=== PATIENT | female | born 1965 | race African-American/Black ===

== ENCOUNTER 2022-02-03 18:09 | Inpatient (IN) | payer MEDICAID ==
[~2022-02-03] VITALS: Ht 165.1 cm; Wt 80.3 kg
[2022-02-03 21:16] LABS: BASOPHILS % 0.6 % (0.0-2.0); EOSINOPHILS % 0.5 % (0.0-5.0); HEMOGLOBIN. 12.9 g/dL (12.0-16.0); LYMPHOCYTES % 36.7 % (20.0-50.0); MEAN CORPUSCULAR HEMOGLOBIN 29.9 pg (28.0-32.0); MEAN CORPUSCULAR VOLUME 87.8 fL (81.0-99.0); MEAN PLATELET VOLUME 7.9 fl (7.4-10.4); MONOCYTES % 6.6 % (2.0-8.0); NEUTROPHILS % 55.6 % (40.0-76.0); PLATELET 221 x1000/uL (130-400); RED BLOOD CELL COUNT 4.32 mill/uL (4.2-5.4); RED CELL DISTRIBUTION WIDTH 13.5 % (11.6-14.6)
[2022-02-03 21:25] LABS: CHLORIDE 103 mEq/L (98-107); INR 1.1; PARTIAL THROMBOPLASTIN TIME 22.9 sec (23.4-31.0); PROTHROMBIN TIME 11.4 sec (9.6-11.0)
[2022-02-03] MEDS ORDERED: HYDRALAZINE 20MG/ML VIAL IV ONE (21:30)
[2022-02-03] MEDS ORDERED: SODIUM CHLORIDE 0.9% 1,000 ML IV ONE (22:15)
[2022-02-03] MEDS ORDERED: POTASSIUM CHLORIDE 20MEQ/PACKET PO NR (22:15)
[2022-02-04 01:54] LABS: CLARITY URINE CLOUDY (CLEAR); COLOR URINE DARK YELLOW (YELLOW); KETONES URINE 1+ (NEGATIVE); LEUKOCYTE ESTERASE URINE NEGATIVE (NEGATIVE); NITRITE URINE NEGATIVE (NEGATIVE); OCCULT BLOOD URINE NEGATIVE (NEGATIVE); PROTEIN URINE 2+ (NEGATIVE); SPECIFIC GRAVITY URINE 1.026 (1.005-1.030)
[2022-02-04] MEDS ORDERED: POTASSIUM CHLORIDE 20MEQ TABLET SR PO NR (12:30)
[2022-02-04] MEDS ORDERED: ONDANSETRON HCL 4MG/2ML INJ IV PRN (12:30)
[2022-02-04] MEDS ORDERED: AMLODIPINE 10MG TABLET PO SCH (12:30)
[2022-02-04] MEDS ORDERED: HYDRALAZINE HCL 100MG TABLET PO NR (12:30)
[2022-02-04] MEDS: SODIUM CHLORIDE 0.9% 1,000 ML IV SCH (13:00)
[2022-02-04] MEDS: HYDRALAZINE HCL 100MG TABLET PO SCH ×2 (14:34→22:00)
[2022-02-04 16:01] VITALS: BP 116/70
[2022-02-04 16:02] VITALS: BP 116/70
[2022-02-04] MEDS: ACETAMINOPHEN 325MG TABLET PO PRN (17:59)
[2022-02-04] MEDS ORDERED: METF-416 PO (18:22)
[2022-02-04] MEDS ORDERED: INSLIS SUBCUT (18:23)
[2022-02-04] MEDS ORDERED: DEXTROSE 50% WATER 50ML SYRINGE IV PRN (19:00)
[2022-02-04 20:00] VITALS: BP 153/72
[2022-02-04] MEDS ORDERED: POTASSIUM CHLORIDE INJ 40 MEQ in DEXT 5% WATER 250 ML IV ONE (20:45)
[2022-02-04] MEDS: BLOOD SUGAR DIAGNOSTIC STRIP TEST SCH (21:33)
[2022-02-04] MEDS: INSULIN LISPRO 100 UNITS/ML SUBCUT SCH (21:37)
[2022-02-04] MEDS: KCL 20MEQ/100ML PREMIX 100 ML IV SCH (21:45)
[2022-02-05] VITALS: BP 136/82
[2022-02-05] MEDS: KCL 20MEQ/100ML PREMIX 100 ML IV SCH ×2 (00:44→03:15)
[2022-02-05] MEDS: SODIUM CHLORIDE 0.9% 1,000 ML IV SCH ×2 (03:16→14:02)
[2022-02-05 04:00] VITALS: BP 144/81
[2022-02-05] MEDS: HYDRALAZINE HCL 50MG TABLET PO SCH ×3 (05:30→21:47)
[2022-02-05] MEDS: BLOOD SUGAR DIAGNOSTIC STRIP TEST SCH ×4 (06:06→21:16)
[2022-02-05 06:32] LABS: BASOPHILS % 0.3 % (0.0-2.0); EOSINOPHILS % 1.3 % (0.0-5.0); HEMATOCRIT. 38.2 % (36.0-48.0); HEMOGLOBIN. 12.9 g/dL (12.0-16.0); LYMPHOCYTES % 23.5 % (20.0-50.0); MEAN CORPUSCULAR HEMOGLOBIN 29.8 pg (28.0-32.0); MEAN CORPUSCULAR VOLUME 88.1 fL (81.0-99.0); MEAN PLATELET VOLUME 8.4 fl (7.4-10.4); NEUTROPHILS % 67.9 % (40.0-76.0); PLATELET 230 x1000/uL (130-400); RED BLOOD CELL COUNT 4.34 mill/uL (4.2-5.4); RED CELL DISTRIBUTION WIDTH 13.5 % (11.6-14.6)
[2022-02-05 08:30] VITALS: BP 128/77
[2022-02-05] MEDS: INSULIN LISPRO 100 UNITS/ML SUBCUT SCH ×4 (09:09→21:47)
[2022-02-05] MEDS: AMLODIPINE 5MG TABLET PO SCH (09:11)
[2022-02-05] MEDS ORDERED: POTASSIUM CHLORIDE 20MEQ TABLET SR PO NR (10:00)
[2022-02-05 12:30] VITALS: BP 148/80
[2022-02-05 16:00] VITALS: BP 142/79
[2022-02-05 20:00] VITALS: BP 132/75
[2022-02-05] MEDS: RISPERIDONE 0.25MG TABLET PO SCH (21:47)
[2022-02-05] MEDS: CARVEDILOL 3.125 MG TABLET PO SCH (21:47)
[2022-02-06] VITALS: BP 139/88
[2022-02-06] MEDS: SODIUM CHLORIDE 0.9% 1,000 ML IV SCH ×2 (04:13→17:08)
[2022-02-06 04:20] VITALS: BP 137/78
[2022-02-06] MEDS: BLOOD SUGAR DIAGNOSTIC STRIP TEST SCH ×4 (06:27→21:00)
[2022-02-06] MEDS: HYDRALAZINE HCL 50MG TABLET PO SCH ×3 (06:28→22:05)
[2022-02-06] MEDS: INSULIN LISPRO 100 UNITS/ML SUBCUT SCH ×4 (07:50→22:09)
[2022-02-06 08:09] LABS: HIV SCREEN 4G Non Reactive (Non Reactive)
[2022-02-06 08:30] VITALS: BP 151/89
[2022-02-06] MEDS: RISPERIDONE 0.25MG TABLET PO SCH ×2 (08:50→22:05)
[2022-02-06] MEDS: CARVEDILOL 3.125 MG TABLET PO SCH ×2 (08:50→22:05)
[2022-02-06] MEDS: AMLODIPINE 5MG TABLET PO SCH (08:51)
[2022-02-06 12:08] VITALS: BP 154/95
[2022-02-06] MEDS: ACETAMINOPHEN 325MG TABLET PO PRN (12:11)
[2022-02-06] MEDS ORDERED: ESCI20TA37 MT (14:35)
[2022-02-06] MEDS ORDERED: OLAN15TA MT (14:40)
[2022-02-06] MEDS ORDERED: TRAZ-251 MT (14:40)
[2022-02-06] MEDS ORDERED: METO-539 MT (14:40)
[2022-02-06] MEDS ORDERED: LOSA100T32 MT (14:40)
[2022-02-06 15:52] VITALS: BP 128/57
[2022-02-06 20:00] VITALS: BP 161/84
[2022-02-06] MEDS ORDERED: TRAZODONE HCL 50MG TABLET PO PRN (21:00)
[2022-02-06 21:55] LABS: *AMPHETAMINES SCREEN URINE NEGATIVE (NEGATIVE); *BARBITURATES SCREEN URINE NEGATIVE (NEGATIVE); *BENZODIAZEPINES SCREEN URINE NEGATIVE (NEGATIVE); *COCAINE SCREEN URINE NEGATIVE (NEGATIVE); CANNABINOID URINE SCREEN NEGATIVE (NEGATIVE); METHADONE URINE SCREEN NEGATIVE (NEGATIVE); OPIATES URINE SCREEN NEGATIVE (NEGATIVE); PHENCYCLIDINE URINE SCREEN NEGATIVE (NEGATIVE)
[2022-02-06 21:56] LABS: BASOPHILS % 0.3 % (0.0-2.0); EOSINOPHILS % 3.2 % (0.0-5.0); HEMATOCRIT. 33.1 % (36.0-48.0); HEMOGLOBIN. 10.9 g/dL (12.0-16.0); MEAN CORPUSCULAR HEMOGLOBIN 29.5 pg (28.0-32.0); MEAN CORPUSCULAR VOLUME 89.1 fL (81.0-99.0); MEAN PLATELET VOLUME 8.5 fl (7.4-10.4); MONOCYTES % 7.4 % (2.0-8.0); NEUTROPHILS % 48.1 % (40.0-76.0); PLATELET 189 x1000/uL (130-400); RED BLOOD CELL COUNT 3.72 mill/uL (4.2-5.4); RED CELL DISTRIBUTION WIDTH 13.5 % (11.6-14.6)
[2022-02-07] VITALS (7 sets, daily range): BP systolic 124–161; BP diastolic 68–92
[2022-02-07] MEDS ORDERED: POTASSIUM CHLORIDE 20MEQ TABLET SR PO NR (02:45)
[2022-02-07] MEDS: HYDRALAZINE HCL 50MG TABLET PO SCH ×3 (06:22→21:03)
[2022-02-07] MEDS: BLOOD SUGAR DIAGNOSTIC STRIP TEST SCH ×4 (06:29→20:01)
[2022-02-07 07:21] LABS: BASOPHILS % 0.4 % (0.0-2.0); EOSINOPHILS % 3.2 % (0.0-5.0); HEMATOCRIT. 33.1 % (36.0-48.0); HEMOGLOBIN. 11.4 g/dL (12.0-16.0); LYMPHOCYTES % 29.2 % (20.0-50.0); MEAN CORPUSCULAR HEMOGLOBIN 30.4 pg (28.0-32.0); MEAN CORPUSCULAR VOLUME 88.7 fL (81.0-99.0); MEAN PLATELET VOLUME 8.5 fl (7.4-10.4); MONOCYTES % 8.3 % (2.0-8.0); NEUTROPHILS % 58.9 % (40.0-76.0); PLATELET 200 x1000/uL (130-400); RED BLOOD CELL COUNT 3.73 mill/uL (4.2-5.4); RED CELL DISTRIBUTION WIDTH 13.6 % (11.6-14.6)
[2022-02-07] MEDS: INSULIN LISPRO 100 UNITS/ML SUBCUT SCH ×4 (08:37→20:29)
[2022-02-07] MEDS: RISPERIDONE 0.25MG TABLET PO SCH ×2 (08:37→20:28)
[2022-02-07] MEDS: CARVEDILOL 3.125 MG TABLET PO SCH ×2 (08:38→20:28)
[2022-02-07] MEDS: SERTRALINE HCL 50MG TABLET PO SCH (08:38)
[2022-02-07] MEDS: AMLODIPINE 5MG TABLET PO SCH (08:38)
[2022-02-07] MEDS: TRAZODONE HCL 50MG TABLET PO SCH (20:28)
[2022-02-08] VITALS: BP 160/89
[2022-02-08] MEDS ORDERED: LORAZEPAM 2MG/ML CPJ IV PRN (02:45)
[2022-02-08 04:00] VITALS: BP 150/79
[2022-02-08] MEDS: HYDRALAZINE HCL 50MG TABLET PO SCH ×3 (05:52→21:53)
[2022-02-08] MEDS: BLOOD SUGAR DIAGNOSTIC STRIP TEST SCH ×3 (07:20→21:26)
[2022-02-08 08:00] VITALS: BP_SYST 113; BP_SYST 161; BP_DIAS 84; BP_DIAS 89
[2022-02-08] MEDS: SERTRALINE HCL 50MG TABLET PO SCH (08:34)
[2022-02-08] MEDS: AMLODIPINE 5MG TABLET PO SCH (08:35)
[2022-02-08] MEDS: CARVEDILOL 3.125 MG TABLET PO SCH ×2 (08:37→21:54)
[2022-02-08] MEDS: RISPERIDONE 0.25MG TABLET PO SCH ×2 (08:39→21:54)
[2022-02-08] MEDS: INSULIN LISPRO 100 UNITS/ML SUBCUT SCH ×4 (08:43→21:55)
[2022-02-08 12:00] VITALS: BP 152/97
[2022-02-08 15:48] VITALS: BP 128/79
[2022-02-08 20:00] VITALS: BP 135/79
[2022-02-08] MEDS: TRAZODONE HCL 50MG TABLET PO SCH (21:53)
[2022-02-09] VITALS: BP 126/82
[2022-02-09 04:00] VITALS: BP 146/87
[2022-02-09] MEDS: HYDRALAZINE HCL 50MG TABLET PO SCH ×3 (06:41→21:50)
[2022-02-09] MEDS: BLOOD SUGAR DIAGNOSTIC STRIP TEST SCH ×4 (06:41→21:49)
[2022-02-09 08:00] VITALS: BP 156/72
[2022-02-09] MEDS: INSULIN LISPRO 100 UNITS/ML SUBCUT SCH ×4 (08:47→21:00)
[2022-02-09] MEDS: AMLODIPINE 5MG TABLET PO SCH (08:52)
[2022-02-09] MEDS: ACETAMINOPHEN 325MG TABLET PO PRN ×2 (08:52→17:51)
[2022-02-09] MEDS: CARVEDILOL 3.125 MG TABLET PO SCH ×2 (08:53→21:50)
[2022-02-09] MEDS: RISPERIDONE 0.25MG TABLET PO SCH ×2 (09:00→21:50)
[2022-02-09] MEDS: SERTRALINE HCL 50MG TABLET PO SCH (09:00)
[2022-02-09 12:00] VITALS: BP 147/82
[2022-02-09 16:00] VITALS: BP 150/88
[2022-02-09 20:00] VITALS: BP 135/74
[2022-02-09] MEDS: TRAZODONE HCL 50MG TABLET PO SCH (21:00)
[2022-02-10] VITALS: BP 146/75
[2022-02-10 04:00] VITALS: BP 151/72
[2022-02-10] MEDS: BLOOD SUGAR DIAGNOSTIC STRIP TEST SCH ×4 (06:19→21:02)
[2022-02-10] MEDS: HYDRALAZINE HCL 50MG TABLET PO SCH ×3 (06:19→21:11)
[2022-02-10] MEDS: INSULIN LISPRO 100 UNITS/ML SUBCUT SCH ×3 (07:44→21:15)
[2022-02-10 08:00] VITALS: BP 159/76
[2022-02-10] MEDS: CARVEDILOL 3.125 MG TABLET PO SCH ×2 (09:45→21:10)
[2022-02-10] MEDS: SERTRALINE HCL 50MG TABLET PO SCH (09:45)
[2022-02-10] MEDS: RISPERIDONE 0.25MG TABLET PO SCH ×2 (09:46→21:10)
[2022-02-10] MEDS: AMLODIPINE 5MG TABLET PO SCH (09:46)
[2022-02-10 12:00] VITALS: BP 144/78
[2022-02-10 16:00] VITALS: BP 152/80
[2022-02-10 20:00] VITALS: BP 159/94
[2022-02-10] MEDS: TRAZODONE HCL 50MG TABLET PO SCH (21:00)
[2022-02-10] MEDS: ZOLPIDEM TARTRATE 5MG TABLET PO PRN (21:10)
[2022-02-11] VITALS: BP 151/72
[2022-02-11 04:00] VITALS: BP 153/76
[2022-02-11] MEDS: HYDRALAZINE HCL 50MG TABLET PO SCH ×3 (06:07→21:42)
[2022-02-11 08:00] VITALS: BP 152/85
[2022-02-11] MEDS: BLOOD SUGAR DIAGNOSTIC STRIP TEST SCH ×4 (08:06→21:35)
[2022-02-11] MEDS: AMLODIPINE 5MG TABLET PO SCH (08:49)
[2022-02-11] MEDS: RISPERIDONE 0.25MG TABLET PO SCH ×2 (08:49→21:42)
[2022-02-11] MEDS: CARVEDILOL 3.125 MG TABLET PO SCH ×2 (08:50→21:42)
[2022-02-11] MEDS: INSULIN LISPRO 100 UNITS/ML SUBCUT SCH ×4 (08:50→21:45)
[2022-02-11] MEDS: SERTRALINE HCL 50MG TABLET PO SCH (08:50)
[2022-02-11] MEDS: ACETAMINOPHEN 325MG TABLET PO PRN (11:21)
[2022-02-11 12:00] VITALS: BP 165/82
[2022-02-11 16:00] VITALS: BP 149/74
[2022-02-11 20:00] VITALS: BP 151/76
[2022-02-11] MEDS: TRAZODONE HCL 50MG TABLET PO SCH (21:00)
[2022-02-12] VITALS: BP 144/71
[2022-02-12] MEDS: ZOLPIDEM TARTRATE 5MG TABLET PO PRN (02:05)
[2022-02-12 04:00] VITALS: BP 164/86
[2022-02-12] MEDS: HYDRALAZINE HCL 50MG TABLET PO SCH ×3 (06:47→21:58)
[2022-02-12] MEDS: BLOOD SUGAR DIAGNOSTIC STRIP TEST SCH ×4 (06:47→21:51)
[2022-02-12] MEDS: CLONIDINE 0.1MG TABLET PO PRN (06:47)
[2022-02-12 08:00] VITALS: BP 135/77
[2022-02-12] MEDS: INSULIN LISPRO 100 UNITS/ML SUBCUT SCH ×4 (08:45→21:59)
[2022-02-12] MEDS: RISPERIDONE 0.25MG TABLET PO SCH ×2 (09:16→21:58)
[2022-02-12] MEDS: AMLODIPINE 5MG TABLET PO SCH ×2 (09:16→21:58)
[2022-02-12] MEDS: SERTRALINE HCL 50MG TABLET PO SCH (09:16)
[2022-02-12] MEDS: CARVEDILOL 3.125 MG TABLET PO SCH ×2 (09:16→21:58)
[2022-02-12] MEDS: DOCUSATE SODIUM 250MG CAPSULE PO SCH (11:42)
[2022-02-12 12:00] VITALS: BP 160/89
[2022-02-12 16:00] VITALS: BP 138/76
[2022-02-12 20:00] VITALS: BP 151/84
[2022-02-12] MEDS: TRAZODONE HCL 50MG TABLET PO SCH (21:58)
[2022-02-13] VITALS: BP 158/74
[2022-02-13 04:00] VITALS: BP 149/77
[2022-02-13] MEDS: HYDRALAZINE HCL 50MG TABLET PO SCH ×3 (06:49→21:51)
[2022-02-13] MEDS: BLOOD SUGAR DIAGNOSTIC STRIP TEST SCH ×4 (06:49→21:52)
[2022-02-13 08:00] VITALS: BP 141/82
[2022-02-13] MEDS: AMLODIPINE 5MG TABLET PO SCH ×2 (08:52→21:52)
[2022-02-13] MEDS: RISPERIDONE 0.25MG TABLET PO SCH ×2 (08:52→21:51)
[2022-02-13] MEDS: SERTRALINE HCL 50MG TABLET PO SCH (08:52)
[2022-02-13] MEDS: CARVEDILOL 3.125 MG TABLET PO SCH ×2 (08:52→21:52)
[2022-02-13] MEDS: DOCUSATE SODIUM 250MG CAPSULE PO SCH (08:52)
[2022-02-13] MEDS: INSULIN LISPRO 100 UNITS/ML SUBCUT SCH ×4 (08:53→22:01)
[2022-02-13] MEDS: CLONIDINE 0.1MG TABLET PO PRN (11:42)
[2022-02-13 12:00] VITALS: BP 162/89
[2022-02-13 16:00] VITALS: BP 148/85
[2022-02-13 20:00] VITALS: BP 148/79
[2022-02-13] MEDS: ZOLPIDEM TARTRATE 5MG TABLET PO PRN (21:52)
[2022-02-13] MEDS: TRAZODONE HCL 50MG TABLET PO SCH (21:52)
[2022-02-14] VITALS: BP 158/89
[2022-02-14 04:00] VITALS: BP 126/78
[2022-02-14] MEDS: HYDRALAZINE HCL 50MG TABLET PO SCH ×3 (06:09→21:24)
[2022-02-14] MEDS: BLOOD SUGAR DIAGNOSTIC STRIP TEST SCH ×4 (07:20→21:49)
[2022-02-14 08:00] VITALS: BP 130/99
[2022-02-14] MEDS: RISPERIDONE 0.25MG TABLET PO SCH ×2 (08:47→21:25)
[2022-02-14] MEDS: DOCUSATE SODIUM 250MG CAPSULE PO SCH (08:47)
[2022-02-14] MEDS: CARVEDILOL 3.125 MG TABLET PO SCH ×2 (08:47→21:24)
[2022-02-14] MEDS: AMLODIPINE 5MG TABLET PO SCH ×2 (08:47→21:26)
[2022-02-14] MEDS: SERTRALINE HCL 50MG TABLET PO SCH (08:47)
[2022-02-14] MEDS: INSULIN LISPRO 100 UNITS/ML SUBCUT SCH ×4 (09:09→21:26)
[2022-02-14 12:00] VITALS: BP 157/79
[2022-02-14] MEDS ORDERED: BISACODYL 5MG TABLET PO PRN (14:45)
[2022-02-14] MEDS ORDERED: LACTULOSE 20G/30ML UDC PO NR (14:45)
[2022-02-14 20:00] VITALS: BP 152/86
[2022-02-14] MEDS: TRAZODONE HCL 50MG TABLET PO SCH (21:24)
[2022-02-15] VITALS: BP 148/69
[2022-02-15 04:00] VITALS: BP 125/66
[2022-02-15] MEDS: HYDRALAZINE HCL 50MG TABLET PO SCH ×3 (05:26→21:54)
[2022-02-15] MEDS: BLOOD SUGAR DIAGNOSTIC STRIP TEST SCH ×4 (07:20→21:00)
[2022-02-15] MEDS: INSULIN LISPRO 100 UNITS/ML SUBCUT SCH ×4 (07:50→22:01)
[2022-02-15] MEDS: DOCUSATE SODIUM 250MG CAPSULE PO SCH (11:33)
[2022-02-15] MEDS: AMLODIPINE 5MG TABLET PO SCH ×2 (11:33→21:55)
[2022-02-15] MEDS: RISPERIDONE 0.25MG TABLET PO SCH ×2 (11:34→21:53)
[2022-02-15] MEDS: SERTRALINE HCL 50MG TABLET PO SCH (11:34)
[2022-02-15] MEDS: CARVEDILOL 3.125 MG TABLET PO SCH ×2 (11:34→21:53)
[2022-02-15 12:00] VITALS: BP 146/83
[2022-02-15 20:00] VITALS: BP 154/69
[2022-02-15] MEDS: TRAZODONE HCL 50MG TABLET PO SCH (21:54)
[2022-02-16] VITALS: BP 171/95
[2022-02-16] MEDS: CLONIDINE 0.1MG TABLET PO PRN (00:53)
[2022-02-16 04:00] VITALS: BP 149/69
[2022-02-16] MEDS: HYDRALAZINE HCL 50MG TABLET PO SCH ×3 (05:33→20:53)
[2022-02-16] MEDS: BLOOD SUGAR DIAGNOSTIC STRIP TEST SCH ×4 (05:33→20:57)
[2022-02-16] MEDS: INSULIN LISPRO 100 UNITS/ML SUBCUT SCH ×4 (07:50→20:57)
[2022-02-16 08:00] VITALS: BP 158/82
[2022-02-16] MEDS: DOCUSATE SODIUM 250MG CAPSULE PO SCH ×2 (09:21→09:46)
[2022-02-16] MEDS: SERTRALINE HCL 50MG TABLET PO SCH (09:22)
[2022-02-16] MEDS: RISPERIDONE 0.25MG TABLET PO SCH ×2 (09:22→20:54)
[2022-02-16] MEDS: CARVEDILOL 3.125 MG TABLET PO SCH ×2 (09:22→20:53)
[2022-02-16] MEDS: ACETAMINOPHEN 325MG TABLET PO PRN (09:22)
[2022-02-16] MEDS: AMLODIPINE 5MG TABLET PO SCH ×2 (09:23→20:54)
[2022-02-16 12:00] VITALS: BP 148/70
[2022-02-16 16:00] VITALS: BP 148/80
[2022-02-16 20:00] VITALS: BP 131/69
[2022-02-16] MEDS: TRAZODONE HCL 50MG TABLET PO SCH (20:53)
[2022-02-17] VITALS: BP 157/83
[2022-02-17 04:00] VITALS: BP 145/79
[2022-02-17] MEDS: HYDRALAZINE HCL 50MG TABLET PO SCH ×2 (05:48→13:10)
[2022-02-17] MEDS: BLOOD SUGAR DIAGNOSTIC STRIP TEST SCH ×4 (06:35→20:52)
[2022-02-17 08:00] VITALS: BP 159/89
[2022-02-17] MEDS: RISPERIDONE 0.25MG TABLET PO SCH ×2 (08:56→20:51)
[2022-02-17] MEDS: SERTRALINE HCL 50MG TABLET PO SCH (08:56)
[2022-02-17] MEDS: CARVEDILOL 3.125 MG TABLET PO SCH ×2 (08:57→20:52)
[2022-02-17] MEDS: AMLODIPINE 5MG TABLET PO SCH ×2 (08:57→20:51)
[2022-02-17] MEDS: LACTULOSE 20G/30ML UDC PO PRN (08:58)
[2022-02-17] MEDS: INSULIN LISPRO 100 UNITS/ML SUBCUT SCH ×4 (09:02→20:51)
[2022-02-17 12:00] VITALS: BP 155/84
[2022-02-17 16:00] VITALS: BP 122/66
[2022-02-17 20:00] VITALS: BP 128/65
[2022-02-17] MEDS: TRAZODONE HCL 50MG TABLET PO SCH (20:51)
[2022-02-17] MEDS: HYDRALAZINE HCL 100MG TABLET PO SCH (20:52)
[2022-02-18 00:02] VITALS: BP 123/63
[2022-02-18] MEDS: ZOLPIDEM TARTRATE 5MG TABLET PO PRN ×2 (01:09→20:36)
[2022-02-18 04:02] VITALS: BP 126/65
[2022-02-18] MEDS: BLOOD SUGAR DIAGNOSTIC STRIP TEST SCH ×4 (06:25→21:09)
[2022-02-18] MEDS: INSULIN LISPRO 100 UNITS/ML SUBCUT SCH ×4 (06:54→21:07)
[2022-02-18 08:00] VITALS: BP 140/79
[2022-02-18] MEDS: CARVEDILOL 3.125 MG TABLET PO SCH ×2 (08:47→20:46)
[2022-02-18] MEDS: SERTRALINE HCL 50MG TABLET PO SCH (08:48)
[2022-02-18] MEDS: HYDRALAZINE HCL 100MG TABLET PO SCH ×2 (08:48→20:46)
[2022-02-18] MEDS: AMLODIPINE 5MG TABLET PO SCH ×2 (08:48→20:56)
[2022-02-18] MEDS: RISPERIDONE 0.25MG TABLET PO SCH ×2 (08:48→20:36)
[2022-02-18] MEDS: DOCUSATE SODIUM 250MG CAPSULE PO SCH (08:49)
[2022-02-18] MEDS: LACTULOSE 20G/30ML UDC PO PRN (08:49)
[2022-02-18 12:00] VITALS: BP 129/66
[2022-02-18 16:00] VITALS: BP 119/57
[2022-02-18 20:00] VITALS: BP 160/94
[2022-02-18] MEDS: TRAZODONE HCL 50MG TABLET PO SCH (20:37)
[2022-02-19] VITALS: BP 148/84
[2022-02-19 04:00] VITALS: BP 162/72
[2022-02-19] MEDS: BLOOD SUGAR DIAGNOSTIC STRIP TEST SCH ×4 (06:21→21:13)
[2022-02-19 08:00] VITALS: BP 112/65
[2022-02-19] MEDS: DOCUSATE SODIUM 250MG CAPSULE PO SCH (09:00)
[2022-02-19] MEDS: HYDRALAZINE HCL 100MG TABLET PO SCH ×2 (09:43→21:29)
[2022-02-19] MEDS: CARVEDILOL 3.125 MG TABLET PO SCH ×2 (09:44→21:28)
[2022-02-19] MEDS: SERTRALINE HCL 50MG TABLET PO SCH (09:44)
[2022-02-19] MEDS: RISPERIDONE 0.25MG TABLET PO SCH ×2 (09:45→21:29)
[2022-02-19] MEDS: AMLODIPINE 5MG TABLET PO SCH ×2 (09:49→21:29)
[2022-02-19] MEDS: INSULIN LISPRO 100 UNITS/ML SUBCUT SCH ×4 (11:12→21:27)
[2022-02-19 12:00] VITALS: BP 150/82
[2022-02-19 16:00] VITALS: BP 134/64
[2022-02-19 20:00] VITALS: BP 148/78
[2022-02-19] MEDS: TRAZODONE HCL 50MG TABLET PO SCH (21:29)
[2022-02-20] VITALS: BP 108/68
[2022-02-20] MEDS: ZOLPIDEM TARTRATE 5MG TABLET PO PRN ×2 (00:06→20:29)
[2022-02-20 04:00] VITALS: BP 136/72
[2022-02-20] MEDS: BLOOD SUGAR DIAGNOSTIC STRIP TEST SCH ×4 (06:36→20:34)
[2022-02-20] MEDS: INSULIN LISPRO 100 UNITS/ML SUBCUT SCH ×4 (06:36→20:34)
[2022-02-20 08:00] VITALS: BP 134/68
[2022-02-20] MEDS: CARVEDILOL 3.125 MG TABLET PO SCH ×2 (09:22→20:28)
[2022-02-20] MEDS: DOCUSATE SODIUM 250MG CAPSULE PO SCH (09:22)
[2022-02-20] MEDS: HYDRALAZINE HCL 100MG TABLET PO SCH ×2 (09:22→20:28)
[2022-02-20] MEDS: SERTRALINE HCL 50MG TABLET PO SCH (09:23)
[2022-02-20] MEDS: RISPERIDONE 0.25MG TABLET PO SCH ×2 (09:23→20:29)
[2022-02-20] MEDS: AMLODIPINE 5MG TABLET PO SCH ×2 (09:23→20:29)
[2022-02-20 16:00] VITALS: BP 151/76
[2022-02-20 20:00] VITALS: BP 141/68
[2022-02-20] MEDS: TRAZODONE HCL 50MG TABLET PO SCH (20:28)
[2022-02-21] VITALS: BP 138/62
[2022-02-21] MEDS: BLOOD SUGAR DIAGNOSTIC STRIP TEST SCH ×4 (06:21→21:02)
[2022-02-21] MEDS: INSULIN LISPRO 100 UNITS/ML SUBCUT SCH ×4 (07:50→21:01)
[2022-02-21 08:00] VITALS: BP 152/76
[2022-02-21] MEDS: DOCUSATE SODIUM 250MG CAPSULE PO SCH (09:53)
[2022-02-21] MEDS: HYDRALAZINE HCL 100MG TABLET PO SCH ×2 (09:53→20:59)
[2022-02-21] MEDS: AMLODIPINE 5MG TABLET PO SCH ×2 (09:54→20:59)
[2022-02-21] MEDS: SERTRALINE HCL 50MG TABLET PO SCH (09:54)
[2022-02-21] MEDS: RISPERIDONE 0.25MG TABLET PO SCH ×2 (09:54→20:58)
[2022-02-21] MEDS: CARVEDILOL 3.125 MG TABLET PO SCH ×2 (09:56→20:59)
[2022-02-21 12:00] VITALS: BP 148/74
[2022-02-21 16:00] VITALS: BP 125/70
[2022-02-21 20:00] VITALS: BP 126/61
[2022-02-21] MEDS: TRAZODONE HCL 50MG TABLET PO SCH (20:58)
[2022-02-21] MEDS: ZOLPIDEM TARTRATE 5MG TABLET PO PRN (20:58)
[2022-02-22] MEDS: BLOOD SUGAR DIAGNOSTIC STRIP TEST SCH ×4 (06:47→21:47)
[2022-02-22] MEDS: INSULIN LISPRO 100 UNITS/ML SUBCUT SCH ×4 (07:50→21:51)
[2022-02-22 08:00] VITALS: BP 159/84
[2022-02-22] MEDS: RISPERIDONE 0.25MG TABLET PO SCH ×2 (09:04→21:45)
[2022-02-22] MEDS: SERTRALINE HCL 50MG TABLET PO SCH (09:04)
[2022-02-22] MEDS: CARVEDILOL 3.125 MG TABLET PO SCH ×2 (09:04→21:44)
[2022-02-22] MEDS: HYDRALAZINE HCL 100MG TABLET PO SCH ×2 (09:05→21:46)
[2022-02-22] MEDS: AMLODIPINE 5MG TABLET PO SCH ×2 (09:05→21:45)
[2022-02-22] MEDS: DOCUSATE SODIUM 250MG CAPSULE PO SCH (09:05)
[2022-02-22 12:00] VITALS: BP 144/68
[2022-02-22 16:00] VITALS: BP 147/78
[2022-02-22 20:00] VITALS: BP 153/74
[2022-02-22] MEDS: TRAZODONE HCL 50MG TABLET PO SCH (21:46)
[2022-02-22] MEDS: ZOLPIDEM TARTRATE 5MG TABLET PO PRN (21:47)
[2022-02-23] VITALS: BP 139/72
[2022-02-23 04:00] VITALS: BP 146/71
[2022-02-23] MEDS: BLOOD SUGAR DIAGNOSTIC STRIP TEST SCH ×4 (07:20→21:52)
[2022-02-23] MEDS: INSULIN LISPRO 100 UNITS/ML SUBCUT SCH ×4 (07:44→21:50)
[2022-02-23] MEDS: HYDRALAZINE HCL 100MG TABLET PO SCH ×2 (09:26→21:38)
[2022-02-23] MEDS: DOCUSATE SODIUM 250MG CAPSULE PO SCH (09:27)
[2022-02-23] MEDS: SERTRALINE HCL 50MG TABLET PO SCH (09:27)
[2022-02-23] MEDS: RISPERIDONE 0.25MG TABLET PO SCH ×2 (09:27→21:36)
[2022-02-23] MEDS: AMLODIPINE 5MG TABLET PO SCH ×2 (09:27→21:38)
[2022-02-23] MEDS: CARVEDILOL 3.125 MG TABLET PO SCH ×2 (09:27→21:37)
[2022-02-23 20:00] VITALS: BP 135/72
[2022-02-23] MEDS: TRAZODONE HCL 50MG TABLET PO SCH (21:36)
[2022-02-24] VITALS: BP 150/79
[2022-02-24 04:00] VITALS: BP 164/86
[2022-02-24] MEDS: INSULIN LISPRO 100 UNITS/ML SUBCUT SCH ×4 (07:50→21:00)
[2022-02-24 08:00] VITALS: BP 174/90
[2022-02-24] MEDS: BLOOD SUGAR DIAGNOSTIC STRIP TEST SCH ×4 (08:06→21:15)
[2022-02-24] MEDS: RISPERIDONE 0.25MG TABLET PO SCH ×2 (08:13→21:14)
[2022-02-24] MEDS: AMLODIPINE 5MG TABLET PO SCH ×2 (08:13→21:14)
[2022-02-24] MEDS: DOCUSATE SODIUM 250MG CAPSULE PO SCH (08:13)
[2022-02-24] MEDS: SERTRALINE HCL 50MG TABLET PO SCH (08:14)
[2022-02-24] MEDS: HYDRALAZINE HCL 100MG TABLET PO SCH ×3 (08:14→18:02)
[2022-02-24] MEDS: CARVEDILOL 3.125 MG TABLET PO SCH ×2 (08:14→21:14)
[2022-02-24 12:00] VITALS: BP 168/89
[2022-02-24] MEDS ORDERED: POTASSIUM CHLORIDE 20MEQ TABLET SR PO NR (13:15)
[2022-02-24 16:00] VITALS: BP 158/69
[2022-02-24 20:00] VITALS: BP 141/74
[2022-02-24] MEDS: TRAZODONE HCL 50MG TABLET PO SCH (21:15)
[2022-02-24] MEDS: ZOLPIDEM TARTRATE 5MG TABLET PO PRN (22:12)
[2022-02-25] VITALS: BP 148/77
[2022-02-25 04:00] VITALS: BP 145/81
[2022-02-25] MEDS: BLOOD SUGAR DIAGNOSTIC STRIP TEST SCH ×4 (06:39→21:50)
[2022-02-25] MEDS: INSULIN LISPRO 100 UNITS/ML SUBCUT SCH ×4 (07:50→21:51)
[2022-02-25 08:00] VITALS: BP 148/73
[2022-02-25] MEDS: DOCUSATE SODIUM 250MG CAPSULE PO SCH (08:37)
[2022-02-25] MEDS: HYDRALAZINE HCL 100MG TABLET PO SCH ×3 (08:37→17:08)
[2022-02-25] MEDS: SERTRALINE HCL 50MG TABLET PO SCH (08:38)
[2022-02-25] MEDS: AMLODIPINE 5MG TABLET PO SCH ×2 (08:38→20:38)
[2022-02-25] MEDS: RISPERIDONE 0.25MG TABLET PO SCH ×2 (08:38→20:38)
[2022-02-25] MEDS: CARVEDILOL 3.125 MG TABLET PO SCH ×2 (08:38→20:38)
[2022-02-25 12:00] VITALS: BP 139/63
[2022-02-25 16:00] VITALS: BP 139/63
[2022-02-25 20:00] VITALS: BP 138/72
[2022-02-25 20:12] LABS: BASOPHILS % 0.6 % (0.0-2.0); EOSINOPHILS % 2.7 % (0.0-5.0); HEMATOCRIT. 29.3 % (36.0-48.0); HEMOGLOBIN. 9.9 g/dL (12.0-16.0); MEAN CORPUSCULAR HEMOGLOBIN 29.8 pg (28.0-32.0); MEAN CORPUSCULAR VOLUME 88.4 fL (81.0-99.0); MEAN PLATELET VOLUME 7.3 fl (7.4-10.4); MONOCYTES % 11.1 % (2.0-8.0); NEUTROPHILS % 53.6 % (40.0-76.0); PLATELET 242 x1000/uL (130-400); RED BLOOD CELL COUNT 3.31 mill/uL (4.2-5.4); RED CELL DISTRIBUTION WIDTH 13.7 % (11.6-14.6)
[2022-02-25] MEDS: ZOLPIDEM TARTRATE 5MG TABLET PO PRN (20:38)
[2022-02-25] MEDS: TRAZODONE HCL 50MG TABLET PO SCH (20:39)
[2022-02-26] VITALS: BP 135/75
[2022-02-26 04:00] VITALS: BP 169/86
[2022-02-26] MEDS: BLOOD SUGAR DIAGNOSTIC STRIP TEST SCH ×4 (07:07→21:00)
[2022-02-26 08:00] VITALS: BP 173/89
[2022-02-26] MEDS: SERTRALINE HCL 50MG TABLET PO SCH (09:00)
[2022-02-26] MEDS: HYDRALAZINE HCL 100MG TABLET PO SCH ×3 (09:29→17:00)
[2022-02-26] MEDS: CLONIDINE 0.1MG TABLET PO PRN (09:29)
[2022-02-26] MEDS: RISPERIDONE 0.25MG TABLET PO SCH ×2 (09:30→22:54)
[2022-02-26] MEDS: AMLODIPINE 5MG TABLET PO SCH ×2 (09:30→22:54)
[2022-02-26] MEDS: CARVEDILOL 3.125 MG TABLET PO SCH ×2 (09:31→22:53)
[2022-02-26] MEDS: DOCUSATE SODIUM 250MG CAPSULE PO SCH (09:31)
[2022-02-26] MEDS: INSULIN LISPRO 100 UNITS/ML SUBCUT SCH ×4 (11:00→23:00)
[2022-02-26 12:00] VITALS: BP 138/81
[2022-02-26 16:00] VITALS: BP 151/82
[2022-02-26 20:00] VITALS: BP 160/83
[2022-02-26] MEDS: TRAZODONE HCL 50MG TABLET PO SCH (22:54)
[2022-02-27] VITALS: BP 155/88
[2022-02-27] MEDS: ZOLPIDEM TARTRATE 5MG TABLET PO PRN (00:07)
[2022-02-27 04:00] VITALS: BP 141/79
[2022-02-27] MEDS: INSULIN LISPRO 100 UNITS/ML SUBCUT SCH ×2 (07:50→12:09)
[2022-02-27 08:00] VITALS: BP 184/90
[2022-02-27] MEDS: BLOOD SUGAR DIAGNOSTIC STRIP TEST SCH ×2 (08:01→12:10)
[2022-02-27] MEDS: RISPERIDONE 0.25MG TABLET PO SCH (08:02)
[2022-02-27] MEDS: DOCUSATE SODIUM 250MG CAPSULE PO SCH (08:02)
[2022-02-27] MEDS: CARVEDILOL 3.125 MG TABLET PO SCH (08:03)
[2022-02-27] MEDS: HYDRALAZINE HCL 100MG TABLET PO SCH ×2 (08:04→12:01)
[2022-02-27] MEDS: AMLODIPINE 5MG TABLET PO SCH (08:04)
[2022-02-27] MEDS: SERTRALINE HCL 50MG TABLET PO SCH (08:04)
[2022-02-27 10:46] VITALS: BP 136/69
[2022-02-27 12:00] VITALS: BP 173/88
[2022-02-27] MEDS ORDERED: CLONIDINE 0.1MG TABLET PO SCH (14:00)
[2022-02-27 16:00] VITALS: BP 157/83
== END 2022-02-27 16:10 | DRG 52 ==
LOC: EDSEX 18:09 → ER 18:09 → 6WST 02-04 01:29 → EDBEDREQTM 02-04 01:39 → EDBEDREQ 02-04 01:39 → 6WST 02-04 16:54 → 6EST 02-20 11:15
PROVIDERS: ADMIT Internal Medicine; ATTEND Internal Medicine
PROC: 4A00X4Z Measurement of Central Nervous Electrical Activity, External Approach (ICD-10-PCS; principal; 2022-02-05)
DX: G93.41 Metabolic encephalopathy (principal); N17.0 Acute kidney failure with tubular necrosis; I21.4 Non-ST elevation (NSTEMI) myocardial infarction; I16.0 Hypertensive urgency; E87.6 Hypokalemia; E11.22 Type 2 diabetes mellitus with diabetic chronic kidney disease; E11.21 Type 2 diabetes mellitus with diabetic nephropathy; F29 Unspecified psychosis not due to a substance or known physiological condition; I12.9 Hypertensive chronic kidney disease with stage 1 through stage 4 chronic kidney disease, or unspecified chronic kidney disease; F03.918 Unspecified dementia, unspecified severity, with other behavioral disturbance; N18.31 Chronic kidney disease, stage 3a; Z79.84 Long term (current) use of oral hypoglycemic drugs; Z81.8 Family history of other mental and behavioral disorders
CPT/HCPCS: 36415; 71045; 76770; 80048; 80053; 80305; 81003; 82962; 83036; 83735; 83880; 84132; 84443; 84484; 85025; 87389; 93005; 93306; 95816; 97116; 97162; 97530; 99285; J0360; J1815; J2060; J3480; J7030

== ENCOUNTER 2023-12-14 15:12 | Emergency (ER) | payer MEDICAID ==
[~2023-12-14] VITALS: Ht 172.7 cm; Wt 70.0 kg
[~2023-12-14 15:12] MED LIST: ESCI20TA37 MT; INSLIS SUBCUT; LOSA100T33 MT; METF-416 PO; METO-539 MT; OLAN15TA MT; TRAZ-251 MT
[2023-12-14 15:20] VITALS: O2SAT 100
[2023-12-14] MEDS: ONDANSETRON HCL 4MG/2ML INJ IV STA (16:25)
[2023-12-14] MEDS: KETOROLAC 15MG/ML VIAL IV ONE (16:25)
[2023-12-14] MEDS: HYDRALAZINE 20MG/ML VIAL IV ONE (16:34)
[2023-12-14 16:36] LABS: BASOPHILS % 0.8 % (0.0-2.0); EOSINOPHILS % 1.9 % (0.0-5.0); HEMOGLOBIN. 12.1 g/dL (12.0-16.0); LYMPHOCYTES % 43.9 % (20.0-50.0); MEAN CORPUSCULAR HEMOGLOBIN 30.3 pg (28.0-32.0); MEAN CORPUSCULAR HGB CONC 33.7 g/dL (31.0-37.0); MEAN PLATELET VOLUME 8.9 fl (7.4-10.4); MONOCYTES % 8.1 % (2.0-8.0); NEUTROPHILS % 45.3 % (40.0-76.0); PLATELET 181 x1000/uL (130-400); RED CELL DISTRIBUTION WIDTH 13.2 % (11.6-14.6); WHITE BLOOD COUNT 4.6 x1000/uL (4.5-11.0)
[2023-12-14 16:40] LABS: CHLORIDE 109 mEq/L (98-107); POTASSIUM 3.1 mEq/L (3.5-5.1); SODIUM 145 mEq/L (136-145)
[2023-12-14 16:41] LABS: CALCIUM 9.4 mg/dL (8.7-10.4); CARBON DIOXIDE 29 mEq/L (21-32)
[2023-12-14 16:44] LABS: INR 1.1; PROTHROMBIN TIME 11.9 sec (9.6-11.0)
[2023-12-14 16:46] LABS: CREATININE 1.3 mg/dL (0.6-1.0); GLUCOSE 122 mg/dL (70-105); UREA NITROGEN BLOOD 18 mg/dL (9-23)
[2023-12-14 16:47] LABS: TROPONIN I HIGH SENSITIVITY 5 ng/L (3.0-34)
[2023-12-14 16:48] LABS: ALANINE AMINOTRANSFERASE 16 IU/L (10-49); ALBUMIN 4.5 g/dL (3.2-4.8); ASPARTATE AMINOTRANSFERASE 16 IU/L (<34); BILIRUBIN TOTAL 0.4 mg/dL (0.1-1.0); PROTEIN TOTAL 7.5 g/dL (6.0-8.3)
[2023-12-14 17:11] LABS: CLARITY URINE CLEAR (CLEAR); COLOR URINE YELLOW (YELLOW); GLUCOSE URINE 2+ (NEGATIVE); KETONES URINE NEGATIVE (NEGATIVE); LEUKOCYTE ESTERASE URINE NEGATIVE (NEGATIVE); NITRITE URINE NEGATIVE (NEGATIVE); OCCULT BLOOD URINE NEGATIVE (NEGATIVE); PROTEIN URINE TRACE (NEGATIVE); SPECIFIC GRAVITY URINE 1.017 (1.005-1.030); UROBILINOGEN URINE 0.2 E.U./dL (0.2-1.0)
[2023-12-14 17:33] LABS: BACTERIA URINE TRACE; RBC URINE 0-2 /hpf (0-2); SQUAMOUS EPITHELIAL CELL URINE FEW /lpf (RARE/1+); WBC URINE 0-2 /hpf (0-2)
[2023-12-14] MEDS: POTASSIUM CHLORIDE 20MEQ TABLET SR PO ONE (19:32)
[2023-12-14 19:37] LABS: TROPONIN I HIGH SENSITIVITY 6 ng/L (3.0-34)
[2023-12-14] MEDS ORDERED: SENN-257 MT (21:35)
[2023-12-14] MEDS ORDERED: NITR-87 MT (21:35)
[2023-12-14 21:45] VITALS: BP 167/98; PULSE 91; RESP 16; TEMP 98.6
[2023-12-14] MEDS ORDERED: IOHEXOL-300 100 ML BOTTLE ONE (23:23)
== END 2023-12-14 22:26 | disposition home or self-care (01) ==
LOC: ER 15:12
DX: R10.84 Generalized abdominal pain (principal); E11.9 Type 2 diabetes mellitus without complications; I10 Essential (primary) hypertension; Z79.899 Other long term (current) drug therapy
CPT/HCPCS: 80053; 81003; 85025; 85610; 84484; 36415; 74177; 96374; 96375; 99285; Q9967; J0360; J1885; J2405; Z7610 ×3

== ENCOUNTER 2024-01-28 14:59 | Inpatient (IN) | payer MEDICAID ==
[~2024-01-28] VITALS: Ht 157.5 cm; Wt 60.8 kg
[~2024-01-28 14:59] MED LIST changes: +NITR-87 MT; +SENN-362 MT
[2024-01-28] MEDS: SODIUM CHLORIDE 0.9% 1,000 ML IV ONE (15:48)
[2024-01-28 16:06] LABS: BASOPHILS % 0.4 % (0.0-2.0); EOSINOPHILS % 0.3 % (0.0-5.0); HEMATOCRIT. 34.4 % (36.0-48.0); HEMOGLOBIN. 11.3 g/dL (12.0-16.0); LYMPHOCYTES % 9.9 % (20.0-50.0); MEAN CORPUSCULAR HEMOGLOBIN 29.8 pg (28.0-32.0); MEAN CORPUSCULAR HGB CONC 32.8 g/dL (31.0-37.0); MEAN CORPUSCULAR VOLUME 90.9 fL (81.0-99.0); MONOCYTES % 3.3 % (2.0-8.0); NEUTROPHILS % 86.1 % (40.0-76.0); PLATELET 168 x1000/uL (130-400); RED BLOOD CELL COUNT 3.78 mill/uL (4.2-5.4); RED CELL DISTRIBUTION WIDTH 13.4 % (11.6-14.6); WHITE BLOOD COUNT 8.9 x1000/uL (4.5-11.0)
[2024-01-28 16:18] LABS: CHLORIDE 110 mEq/L (98-107); POTASSIUM 3.6 mEq/L (3.5-5.1); SODIUM 143 mEq/L (136-145)
[2024-01-28 16:19] LABS: CARBON DIOXIDE 25 mEq/L (21-32)
[2024-01-28 16:20] LABS: CALCIUM 9.3 mg/dL (8.7-10.4)
[2024-01-28 16:24] LABS: GLUCOSE 185 mg/dL (70-105); UREA NITROGEN BLOOD 28 mg/dL (9-23)
[2024-01-28 16:25] LABS: TROPONIN I HIGH SENSITIVITY 4 ng/L (3.0-34)
[2024-01-28 16:27] LABS: CREATININE 1.7 mg/dL (0.6-1.0)
[2024-01-28 16:29] LABS: THYROID STIMULATING HORMONE 1.29 uIU/mL (0.55-4.78)
[2024-01-28] MEDS ORDERED: NALOXONE HCL 0.4MG/ML VIAL IV PRN (19:15)
[2024-01-28] MEDS ORDERED: ACETAMINOPHEN 325MG TABLET PO PRN (19:15)
[2024-01-28] MEDS ORDERED: ENOXAPARIN 40MG/0.4ML SYR SUBCUT SCH (19:15)
[2024-01-28] MEDS ORDERED: ONDANSETRON HCL 4MG/2ML INJ IV PRN (19:15)
[2024-01-28 20:00] VITALS: BP 135/66; PULSE 85; TEMP 36.3918; O2SAT 97
[2024-01-28] MEDS: ZOLPIDEM TARTRATE 5MG TABLET PO PRN (20:59)
[2024-01-28] MEDS: METOPROLOL TARTRATE 50MG TABLET PO SCH (21:00)
[2024-01-28] MEDS: OLANZAPINE 5MG TABLET PO SCH (21:02)
[2024-01-28 22:36] VITALS: BP 133/66; PULSE 85; RESP 18; TEMP 36.418
[2024-01-28] MEDS ORDERED: DEXTROSE 50% WATER 50ML SYRINGE IV PRN (23:30)
[2024-01-29] VITALS: BP 129/68; PULSE 64; TEMP 36.6696; O2SAT 98
[2024-01-29 04:00] VITALS: BP 140/73; PULSE 70; TEMP 36.3918; O2SAT 99
[2024-01-29] MEDS: BLOOD SUGAR DIAGNOSTIC STRIP TEST SCH (07:40)
[2024-01-29] MEDS: INSULIN LISPRO 100 UNITS/ML SUBCUT SCH (07:50)
[2024-01-29 08:00] VITALS: BP 132/66; PULSE 60; RESP 20; TEMP 36.05844; O2SAT 100
[2024-01-29 08:34] LABS: BASOPHILS % 0.7 % (0.0-2.0); EOSINOPHILS % 2.2 % (0.0-5.0); HEMATOCRIT. 33.9 % (36.0-48.0); HEMOGLOBIN. 11.1 g/dL (12.0-16.0); LYMPHOCYTES % 24.7 % (20.0-50.0); MEAN CORPUSCULAR HEMOGLOBIN 29.9 pg (28.0-32.0); MEAN CORPUSCULAR HGB CONC 32.6 g/dL (31.0-37.0); MEAN CORPUSCULAR VOLUME 91.8 fL (81.0-99.0); MEAN PLATELET VOLUME 8.9 fl (7.4-10.4); MONOCYTES % 6.6 % (2.0-8.0); NEUTROPHILS % 65.8 % (40.0-76.0); PLATELET 163 x1000/uL (130-400); RED BLOOD CELL COUNT 3.69 mill/uL (4.2-5.4); RED CELL DISTRIBUTION WIDTH 13.7 % (11.6-14.6); WHITE BLOOD COUNT 6.2 x1000/uL (4.5-11.0)
[2024-01-29 08:36] LABS: POTASSIUM 3.3 mEq/L (3.5-5.1)
[2024-01-29 08:37] LABS: CALCIUM 9.2 mg/dL (8.7-10.4)
[2024-01-29 08:42] LABS: CREATININE 1.2 mg/dL (0.6-1.0)
[2024-01-29 12:28] VITALS: BP 172/86; PULSE 66; RESP 17; TEMP 36.22512; O2SAT 100
[2024-01-29] MEDS: CLONIDINE 0.1MG TABLET PO PRN (15:30)
[2024-01-29] MEDS: POTASSIUM CHLORIDE 20MEQ TABLET SR PO NR (15:31)
[2024-01-29 16:20] VITALS: BP 173/85; PULSE 67; RESP 20; TEMP 36.78072; O2SAT 99
[2024-01-29] MEDS: SODIUM CHLORIDE 0.9% 1,000 ML IV SCH (19:30)
[2024-01-29] MEDS: ENOXAPARIN 30MG/0.3ML SYR SUBCUT SCH (19:30)
[2024-01-29] MEDS: DEXTROSE 50% WATER 50ML SYRINGE IV NR (19:48)
[2024-01-29 20:00] VITALS: BP 140/73; PULSE 64; RESP 16; TEMP 36.55848; O2SAT 99
[2024-01-29 20:17] LABS: BG BASE EXCESS 4.3 mmol/L (-2.0-3.0); BG CARBOXYHEMOGLOBIN 0.4 % (0.5-1.5); BG DEOXYHEMOGLOBIN 3.4 % (0.0-5.0); BG FRACTION INSPIRED OXYGEN 21; BG HCO3 ACT 29.3 mmol/L (21.0-28.0); BG METHEMOGLOBIN 0.3 % (0.5-1.5); BG OXYGEN SATURATION 96.6 % (94.0-98.0); BG OXYHEMOGLOBIN 95.9 % (94.0-98.0); BG PCO2 45.4 mmHg (32.0-45.0); BG PH 7.427 (7.350-7.450); BG PO2 84.9 mmHg (83.0-108.0); BG SAMPLE SITE LEFT RADIAL; BG TOTAL HEMOGLOBIN 11.5 g/dL (12.0-16.0); BG VENT MODE ROOM AIR
[2024-01-29] MEDS: OLANZAPINE 5MG TABLET PO SCH (21:16)
[2024-01-30] VITALS: BP 119/63; PULSE 62; RESP 16; TEMP 36.22512; O2SAT 97
[2024-01-30 01:18] LABS: AMMONIA 28 uMol/L (<32)
[2024-01-30 04:00] VITALS: BP 155/74; PULSE 61; RESP 16; TEMP 36.114; O2SAT 98
[2024-01-30] MEDS: HYDROCODONE/ACETAMINOPHEN 5/325MG TABLET PO PRN (05:43)
[2024-01-30 08:00] VITALS: BP 165/77; PULSE 55; RESP 14; TEMP 36.50292; O2SAT 99
[2024-01-30 08:34] LABS: BASOPHILS % 0.9 % (0.0-2.0); EOSINOPHILS % 6.1 % (0.0-5.0); HEMATOCRIT. 33.6 % (36.0-48.0); HEMOGLOBIN. 10.9 g/dL (12.0-16.0); LYMPHOCYTES % 52.3 % (20.0-50.0); MEAN CORPUSCULAR HEMOGLOBIN 29.7 pg (28.0-32.0); MEAN CORPUSCULAR HGB CONC 32.4 g/dL (31.0-37.0); MEAN CORPUSCULAR VOLUME 91.7 fL (81.0-99.0); MEAN PLATELET VOLUME 8.9 fl (7.4-10.4); MONOCYTES % 7.2 % (2.0-8.0); NEUTROPHILS % 33.5 % (40.0-76.0); PLATELET 161 x1000/uL (130-400); RED BLOOD CELL COUNT 3.67 mill/uL (4.2-5.4); RED CELL DISTRIBUTION WIDTH 13.4 % (11.6-14.6)
[2024-01-30 08:43] LABS: CALCIUM 8.6 mg/dL (8.7-10.4)
[2024-01-30 08:48] LABS: CREATININE 1.5 mg/dL (0.6-1.0)
[2024-01-30 12:00] VITALS: BP 150/78; PULSE 57; RESP 18; TEMP 37.00296; O2SAT 99
[2024-01-30 16:00] VITALS: BP 181/89; PULSE 60; RESP 16; TEMP 37.00296; O2SAT 97
[2024-01-30] MEDS: AMLODIPINE 5MG TABLET PO SCH (17:51)
[2024-01-30 20:00] VITALS: BP 169/89; PULSE 64; RESP 20; TEMP 36.72516; O2SAT 99
[2024-01-31] VITALS (7 sets, daily range): BP systolic 133–185; BP diastolic 72–94; PULSE 58–72; RESP 17–20; TEMP 36.44736–37.72524; O2SAT 99–100
[2024-02-01] VITALS: BP 136/69; PULSE 72; RESP 18; TEMP 36.72516; O2SAT 98
[2024-02-01 04:00] VITALS: BP 144/75; PULSE 70; RESP 18; TEMP 36.83628; O2SAT 99
[2024-02-01 08:00] VITALS: BP 151/69; PULSE 68; RESP 16; TEMP 36.55848; O2SAT 98
[2024-02-01 12:00] VITALS: BP 192/96; PULSE 66; RESP 16; TEMP 36.89184; O2SAT 100
[2024-02-01] MEDS: LOSARTAN 50 MG TABLET PO SCH (14:23)
[2024-02-01 16:00] VITALS: BP 173/87; PULSE 65; RESP 18; TEMP 36.72516; O2SAT 100
[2024-02-01] MEDS ORDERED: HYDRALAZINE 20MG/ML VIAL IV PRN (16:15)
[2024-02-01] MEDS: CLONIDINE 0.1MG TABLET PO SCH (16:58)
[2024-02-01] MEDS: HYDRALAZINE 10 MG in SODIUM CHLORIDE 0.9% 49.5 ML IV PRN (16:59)
[2024-02-01 20:00] VITALS: BP 123/68; PULSE 66; RESP 16; TEMP 36.22512; O2SAT 99
[2024-02-02] VITALS: BP 121/61; PULSE 59; RESP 16; TEMP 36.22512; O2SAT 98
[2024-02-02 04:00] VITALS: BP 139/76; PULSE 66; RESP 18; TEMP 36.28068; O2SAT 97
[2024-02-02 08:00] VITALS: BP 156/85; PULSE 61; RESP 16; TEMP 36.61404; O2SAT 100
[2024-02-02] MEDS ORDERED: CLON0.1T PO (10:28)
[2024-02-02] MEDS ORDERED: AMLO5TAB88 PO (10:28)
[2024-02-02] MEDS ORDERED: OLAN5TAB74 PO (10:28)
[2024-02-02 12:00] VITALS: BP 116/80; PULSE 62; RESP 18; TEMP 36.6696; O2SAT 100
[2024-02-02 16:00] VITALS: BP 131/67; PULSE 61; RESP 16; TEMP 36.6696; O2SAT 98
[2024-02-02 20:14] VITALS: BP 134/72; PULSE 65; RESP 18; TEMP 36.44736; O2SAT 100
[2024-02-02] MEDS: OLANZAPINE 10MG TABLET PO SCH (21:30)
[2024-02-03] VITALS: BP 135/71; PULSE 60; RESP 19; TEMP 36.3918; O2SAT 100
[2024-02-03 04:00] VITALS: BP 161/73; PULSE 67; RESP 17; TEMP 36.33624; O2SAT 99
[2024-02-03 08:00] VITALS: BP 156/78; PULSE 59; RESP 19; TEMP 36.72516; O2SAT 99
[2024-02-03 12:00] VITALS: BP 151/59; PULSE 58; RESP 19; TEMP 36.6696; O2SAT 99
[2024-02-03 16:00] VITALS: BP 148/63; PULSE 70; RESP 19; TEMP 36.55848; O2SAT 99
[2024-02-03 18:46] VITALS: BP 125/87; PULSE 87; TEMP 97.5; O2SAT 98
== END 2024-02-03 19:02 | disposition home health service (06) | DRG 52 ==
LOC: ER 14:59 → EDBEDREQ 17:25 → EDBEDREQTM 17:25 → 5WST 18:23 → 6WST 19:57
PROVIDERS: ADMIT Internal Medicine; ATTEND Internal Medicine
DX: G93.40 Encephalopathy, unspecified (principal); N17.9 Acute kidney failure, unspecified; E11.9 Type 2 diabetes mellitus without complications; I10 Essential (primary) hypertension; Z79.899 Other long term (current) drug therapy
CPT/HCPCS: 36415; 36600; 71045; 72170; 73610; 80048; 80061; 82140; 82375; 82805; 82962; 83036; 83735; 84443; 84484; 85025; 93005; 93970; 97162; 99285; C1893; J0360; J1650; J7030